=== PATIENT | female | born 1995 | race Caucasian/White ===

== ENCOUNTER 2022-09-11 09:04 | Emergency (ER) | payer OTHER, SELFPAY ==
--- OUTSIDE RECORDS SUMMARY | 2022-09-11 09:07 | XMS REPORT | Continuity of Care Document ---
:[address] [facility] [place], [place] t Address [address] [place] [address] [place] [id number] Care Team Providers Name Role Phone PCP, PATIENT DOES NOT HAVE A Primary Care Physician UnavailDARREL Larkin Attending Clinician Unavailable DARREL DESAI Attending Clinician Unavailable PASCUAL WILKINS Attending Clinician Unavailable Payers Payer Name Policy Type Policy Number Effective Date Expiration Date S bijal [employer] [id number] 2022 OUT OF NETWORK 00:00:00 [facility] [id number] 2018 CHOICE [place] STAR 00:00:00 Problems This patient has no known problems. Allergies, Adverse Reactions, Alerts Allergy Allergy Status Severity Reaction(s) Onset Inactive Treating Comm ents Source Name Type Date Date Clinician NO KNOWN Drug Active [facility] ALLERGIE Class y of [facility] Medications This patient has no known medications. Procedures This patient has no known procedures. Encounters Start End Encounter Admission Attending Care Care Encounter Source Date/Time Date/Time Type Type Clinicians Facility Department ID 2022-06-14 2022-06-14 Outpatient R DARREL DESAI [facility] B [id number] Univers 14:45:00 14:45:00 DARREL DESAI purnima [facility] 2022-06-06 2022-06-06 Outpatient R DARREL DESAI [facility] B [id number] [facility] 14:30:00 14:30:00 DARREL DESAI purnima [facility] 2022-05-16 2022-05-16 Outpatient R DARREL DESAI [facility] B [id number] [facility] 13:30:00 13:30:00 DARREL DESAI purnima [facility] 2022-05-11 2022-05-11 Outpatient R DARREL DESAI [facility] B [id number] Univers 08:00:00 08:00:00 DARREL DESAI [facility] 2019-07-13 2019-07-13 Outpatient R FRANKY [facility] [id number] Univers 14:30:00 14:30:00 PASCUAL [facility] Results This patient has no known results.
--- NOTE | 2022-09-11 10:03 | RAD REPORT ---
EXAM DESCRIPTION: RAD - Chest Single View - 09/11/2022 9:36 am CLINICAL HISTORY: PALPITATIONS Chest pain. COMPARISON: No comparisons FINDINGS: Portable technique limits examination quality. The lungs are grossly clear. The heart is normal in size. No displaced fractures. IMPRESSION: No acute intrathoracic process suspected.
[2022-09-11 10:04] LABS: Absolute Lymphocytes (CBC) 1.8 K/uL (0.7-4.9); Hematocrit 38.2 % (36.0-45.0); Lymphocytes % 37.9 % (15.3-44.8); MCV 85.7 fL (80-100); MPV 8.1 fL (7.6-11.3); RBC Red Blood Cell Count 4.46 M/uL (3.86-4.86)
[2022-09-11 10:30] LABS: Potassium 3.7 mEq/L (3.5-5.1); Troponin High Sensitivity 3.2 pg/mL (<58.9)
[2022-09-11 10:51] LABS: Thyroid Stimulating Hormone 1.39 uIU/mL (0.358-3.740)
--- NOTE | 2022-09-11 10:56 | EDPHYS ---
Physician Documentation [facility] Name: Lily Arora Age: 27 yrs Sex: Female : 1995 Arrival Date: 09/11/2022 Time: 09:04 Bed 13 Private MD: ED Physician Phuc Correa HPI: 09/11 09:19 This 27 yrs old Female presents to ER via Ambulatory with complaints of Palpitations. rn 09:19 The patient presents with a history of heart racing. Context: The symptoms occur rn without known cause. Onset: The symptoms/episode began/occurred 8 month(s) ago. Modifying factors: The symptoms are aggravated by nothing. The symptoms are alleviated by nothing. Associated signs and symptoms: Pertinent positives: lightheadedness, Pertinent negatives: chest pain, syncope, vomiting. Severity of symptoms: At their worst the symptoms were mild in the emergency department the symptoms are unchanged. The patient has experienced similar episodes in the past. The patient has not recently seen a physician. Pt reports palpitations, feels "strong" and sometimes fast, happening intermittently for 8 months, no fever/chest pain/cough/syncope. No heavy bleeding. No blood in stool. Reports around the time it started is when she became clean off methamphetamine. Denies current drug usage. States this happens approx once/week. She feels like it is anxiety but hasn't been evaluated. . 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 - Social history:: Smoking status: Reported history of juuling and/or vaping. - Family history:: not pertinent. - Hospitalizations: : No recent hospitalization is reported. ROS: 09:19 Constitutional: Negative for fever, chills, and weight loss, Cardiovascular: Negative rn for chest pain, and edema Respiratory: Negative for cough, wheezing, and pleuritic chest pain Abdomen/GI: Negative for abdominal pain, nausea, vomiting, diarrhea, and constipation, MS/Extremity: Negative for injury and deformity, Skin: Negative for injury, rash, and discoloration, Neuro: Negative for headache, weakness, numbness, tingling, and seizure. Exam: 09:19 Constitutional: This is a well developed, well nourished patient who is awake, alert, rn and in no acute distress. Head/Face: Normocephalic, atraumatic. Eyes: Normal conjunctiva Cardiovascular: Regular rate and rhythm. No pulse deficits. No murmur Respiratory: No increased work of breathing, no retractions or nasal flaring. Abdomen/GI: Soft, non-tender Skin: Warm, dry MS/ Extremity: Pulses equal, no cyanosis. Neuro: Awake and alert, GCS 15 10:32 ECG was reviewed by the Attending Physician. rn Vital Signs: 09:09 BP 139 / 91; Pulse 78; Resp 18 S; Temp 97.5(TE); Pulse Ox 100% on R/A; aa5 09:45 BP 112 / 75; Pulse 60; Resp 14; Pulse Ox 100% ; ko1 11:05 BP 114 / 65; Pulse 64; Resp 16; Pulse Ox 99% ; ko1 MDM: 09:05 Patient medically screened. rn 10:53 Differential diagnosis: arrythmia, dehydration, stress disorder. Data reviewed: vital rn signs, nurses notes, lab test result(s), EKG, radiologic studies, plain films, and as a result, I will discharge patient. Independent interpretation of the following test(s) in the Emergency Department EKG: See my EKG interpretation above X-Ray: My interpretation is CXR images neg for pneumothorax or infiltrate per my interpretation . Counseling: I had a detailed discussion with the patient and/or guardian regarding: the historical points, exam findings, and any diagnostic results supporting the discharge/admit diagnosis, lab results, radiology results, the need for outpatient follow up, to return to the emergency department if symptoms worsen or persist or if there are any questions or concerns that arise at home. Special discussion: I discussed with the patient/guardian in detail that at this point there is no indication for admission to the hospital. It is understood, however, that if the symptoms persist or worsen the patient needs to return immediately for re-evaluation. Based on the history and exam findings, there is no indication for further emergent testing or inpatient evaluation. I discussed with the patient/guardian the need to see the glove cleaner for further evaluation of the symptoms. I discussed with the patient/guardian the need to see the primary care provider for further evaluation of the symptoms. ED course: NO acute findings here, recommend cardiology f/u for holter and ECHO.. 09/11 09:18 Order name: Basic Metabolic Panel; Complete Time: 10:52 rn 09/11 09:18 Order name: CBC with Diff; Complete Time: 10:10 rn 09/11 09:18 Order name: NT PRO-BNP; Complete Time: : rn 09/11 09:18 Order name: Troponin HS; Complete Time: : rn 09/11 09:18 Order name: TSH; Complete Time: : rn 09/11 09:18 Order name: T4 Free; Complete Time: : rn 09/11 09:18 Order name: XRAY Chest (1 view); Complete Time: 10: rn 09/11 09:18 Order name: EKG; Complete Time: 09:19 rn 09/11 09:18 Order name: Cardiac monitoring; Complete Time: :32 rn 09/11 09:18 Order name: EKG - Nurse/Tech; Complete Time: 09:32 rn 09/11 09:18 Order name: IV Saline Lock; Complete Time: :44 rn 09/11 09:18 Order name: Labs collected and sent; Complete Time: :44 rn 09/11 09:18 Order name: O2 Per Protocol; Complete Time: 09:32 rn 09/11 09:18 Order name: O2 Sat Monitoring; Complete Time: 09:32 rn EC:32 Rate is 64 beats/min. Rhythm is regular. QRS [place] is Normal. OR interval is normal. QRS rn interval is normal. QT interval is normal. No Q waves. T waves are Normal. No ST changes noted. Clinical impression: NSR w/ Non-specific ST/T Changes. Interpreted by me. Reviewed by me. Administered Medications: No medications were administered Disposition Summary: 09/11/22 10:55 Discharge Ordered Location: Home rn Problem: an ongoing problem rn Symptoms: have improved rn Condition: Stable rn Diagnosis - Palpitations rn Followup: rn - With: Private Physician - When: As needed - Reason: Recheck today's complaints, Re-evaluation by your physician Discharge Instructions: - Discharge Summary Sheet rn - Palpitations rn Forms: - Medication Reconciliation Form rn - Thank You Letter rn - Antibiotic assistant prosecuting attorney - Prescription Opioid Use rn Signatures: Dispatcher [employer] Phuc Cheatham MD MD rn Calderon, Audri RN RN aa5
--- NOTE | 2022-09-11 10:56 | ER ---
Nurse's Notes [facility] Name: Lily Arora Age: 27 yrs Sex: Female : 1995 Arrival Date: 09/11/2022 Time: 09:04 Bed 13 Private MD: Diagnosis: Palpitations Presentation: 09/11 09:09 Chief complaint: Patient states: episodic palpitations since December 2021, pt states aa5 "the palpitations started since I got clean, I used to take methamphetamine". Coronavirus screen: At this time, the client does not indicate any symptoms associated with coronavirus-19. Ebola Screen: Patient denies travel to an Ebola-affected area in the 21 days before illness onset. Initial Sepsis Screen: Does the patient meet any 2 criteria? No. Patient's initial sepsis screen is negative. Does the patient have a suspected source of infection? No. Patient's initial sepsis screen is negative. Risk Assessment: Do you want to hurt yourself or someone else? Patient reports no desire to harm self or others. Onset of symptoms was December 2021. 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 - Social history:: Smoking status: Reported history of juuling and/or vaping. - Family history:: not pertinent. - Hospitalizations: : No recent hospitalization is reported. Screenin:20 [facility] ED Fall Risk Assessment (Adult) History of falling in the last 3 months, ko1 including since admission No falls in past 3 months (0 pts) Confusion or Disorientation No (0 pts) Intoxicated or Sedated No (0 pts) Impaired Gait No (0 pts) Mobility Assist Device Used No (0 pt) Altered Elimination No (0 pt) Score/Fall Risk Level 0 - 2 = Low Risk Oriented to surroundings, Maintained a safe environment, Educated pt \\T\\ family on fall prevention, incl call for assistance when getting out of bed, Assessed \\T\\ reinforced patient's understanding of fall precautions, Provided non-skid footwear, Hourly rounding (assess needs \\T\\ fall precautionary measures) done, Used ambulatory aids as needed (educated on \\T\\ assisted with), Used gait belt as appropriate. Abuse screen: Denies threats or abuse. Denies injuries from another. Nutritional screening: No deficits noted. Tuberculosis screening: No symptoms or risk factors identified. Assessment: 09:20 General: Appears in no apparent distress. comfortable, Behavior is calm, cooperative, ko1 appropriate for age. Pain: Denies pain. Pain: Denies pain. Neuro: No deficits noted. Cardiovascular: Reports palpitations. Respiratory: No deficits noted. GI: No deficits noted. : No deficits noted. EENT: No deficits noted. Derm: No deficits noted. Musculoskeletal: No deficits noted. Vital Signs: 09:09 BP 139 / 91; Pulse 78; Resp 18 S; Temp 97.5(TE); Pulse Ox 100% on R/A; aa5 09:45 BP 112 / 75; Pulse 60; Resp 14; Pulse Ox 100% ; ko1 11:05 BP 114 / 65; Pulse 64; Resp 16; Pulse Ox 99% ; ko1 ED Course: 09:05 Patient arrived in ED. rg4 09:05 Phuc Correa MD is Attending Physician. rn 09:09 Arm band placed on. aa5 09:10 Triage completed. aa5 09:18 Patricia Momin, CATHY is Primary Nurse. ko1 09:20 Patient has correct armband on for positive identification. Placed in gown. Bed in low ko1 position. Call light in reach. Side rails up X 1. Client placed on continuous cardiac and pulse oximetry monitoring. NIBP monitoring applied. quality assurance monitor chassis on. Warm blanket given. 09:38 XRAY Chest (1 view) In Process Unspecified. EDMS 09:44 Basic Metabolic Panel Sent. ko1 09:44 CBC with Diff Sent. ko1 09:44 NT PRO-BNP Sent. ko1 09:44 TSH Sent. ko1 09:44 T4 Free Sent. ko1 09:45 Troponin HS Sent. ko1 09:45 No provider procedures requiring assistance completed. Inserted saline lock: 20 gauge ko1 in right antecubital area, using aseptic technique. Blood collected. 11:05 IV discontinued, intact, bleeding controlled, No redness/swelling at site. Pressure ko1 dressing applied. Administered Medications: No medications were administered Medication: 11:05 VIS not applicable for this client. ko1 Outcome: 10:55 Discharge ordered by . rn 11:14 Discharged to home ambulatory. ko1 11:14 Condition: stable 11:14 Discharge instructions given to patient, Instructed on discharge instructions, follow up and referral plans. Demonstrated understanding of instructions, follow-up care. 11:18 Patient left the ED. ko1 Signatures: Dispatcher [employer] EDMS Phuc Correa MD MD rn Calderon, Audri RN RN aa5 Francy Marroquin rg4 Patricia Momin RN RN ko1 Corrections: (The following items were deleted from the chart) 09:12 09:09 Chief complaint: Patient states: episodic palpitations since December 2021, pt aa5 states "the palpitations started since I got clean, I used to take methamphetamine". aa5
[2022-09-11 11:37] VITALS: TEMP 97.5
[2022-09-11 11:41] VITALS: BP 114/65; O2SAT 99
--- NOTE | 2022-09-12 16:00 | EKG ---
Test Date: 2022-09-11 Test Time: 09:27:50 Element Setter: MIGUEL ANGEL MEASUREMENT RESULTS: Intervals: Rate: 64 OK: 172 QRSD: 94 QT: 394 QTc: 406 Vancleave: P: 53 OK: 172 QRS: 68 T: 46 INTERPRETIVE STATEMENTS: Normal sinus rhythm Cannot rule out Anterior infarct, age undetermined Abnormal ECG No previous ECG available for comparison Electronically Signed On 09-12-22 15:57:36 CDT by Sahggy Green
== END 2022-09-11 11:18 | disposition home or self-care (01) ==
LOC: ER 09:04
DX: R00.2 Palpitations (principal)
CPT/HCPCS: 36415; 71045; 80048; 83880; 84439; 84443; 84484; 85025; 93005; 99284